=== PATIENT | male | born 1935 | race African-American/Black ===

== ENCOUNTER 2018-06-03 14:41 | Emergency (ER) | payer MEDICARE ==
--- NOTE | 2018-06-03 15:14 | Emergency Department Report ---
ED CPR HPI - General Chief Complaint: Cardiac Arrest/CPR Stated Complaint: CARDIAC ARREST Time Seen by Provider: 06/03/18 15:00 Source: EMS Mode of arrival: Stretcher Limitations: Other (Unresponsive) - History of Present Illness Initial Comments: According to EMS report, patient was found unresponsive at home and 911 was called. EMS arrived about 10-15 minutes after the 911 call. Patient was a witnessed arrest by his family. However, no CPR was started by the family prior to EMS arrival. When EMS arrived patient had no pulse and asystolic. EMS placed a combitube and started CPR. Patient remained pulseless and asystolic. By the time EMS arrived in the ED, patient had received ACLS/CPR from the claim analyst for approximately 20-25 minutes from the time EMS arrived on scene to the time patient arrived in the ED. Patient had also received 4 rounds of epinephrine IV from the claim analyst before arriving in the ED. On examination on arrival, patient still had no pulse and asystolic on the monitor. Pupils were fixed and dilated bilaterally. Bright red blood was coming out of the patients mouth when bagged. Patient has no sign of life. He was pronounced at 14:44 pm. I spoke with the patients daughter who followed the patient to the ED and communicated to her what transpired. She said she will notify the rest of her family to arrange for . I was accompanied by the charge nurse Ms. Ashley RN. Complaint: found unresponsive Place: home Bystander CPR Performed: No AED Applied by Bystander/Dynamic Balancer: No Initial Findings in the Field: unresponsive ROSC in the Field: No Associated Injuries: No Treatments Prior to Arrival: BMV, other airway device (Combitube), epinephrine mgs # (4) - Related Data Allergies Allergy/AdvReac Type Severity Reaction Status Date / Time No Known Allergies Allergy Unverified 07/25/14 09:57 ED Review of Systems ROS: Stated complaint: CARDIAC ARREST Other details as noted in HPI Comment: Unobtainable due to pts medical conditions (Unresponsive and pulseless.) ED Physical Exam - General Limitations: Other (Unresponsive and Pulseless.) General appearance: other (Lifeless and unresponsive.) - Head Head exam: Present: atraumatic - Eye Pupils: Present: mydriatic, other (Fixed and dilated) - ENT ENT exam: Present: other (Blood coming out of this mouth when bagged.) - Neck Neck exam: Present: normal inspection - Respiratory Respiratory exam: Present: other (Breath sound only when bagged.) - Cardiovascular Cardiovascular Exam: Present: other (Pulseless and asystolic) - GI/Abdominal GI/Abdominal exam: Present: soft, distended, diminished bowel sounds - Rectal Rectal exam: Present: deferred - Neurological Exam Neurological exam: Present: other (GCS = 3T) - Skin Skin exam: Present: petechiae, ecchymosis (Bilateral Upper extremities.) ED Course - Reevaluation(s) Reevaluation #1: 06/03/18 15:18 Pronounced at 14:44pm. ED Medical Decision Making - Medical Decision Making Cardiac Arrest of undetermined etiology. Critical care attestation.: If time is entered above; I have spent that time in minutes in the direct care of this critically ill patient, excluding procedure time. ED Disposition Clinical Impression: Cardiac arrest Disposition: DC-20 Is pt being admited?: No Does the pt Need Aspirin: No Condition: Critical Referrals: PRIMARY CARE, [Primary Care Provider] - 3-5 Days Time of Disposition: 14:45
== END 2018-06-03 18:18 ==
LOC: ED 14:41
DX: I46.9 Cardiac arrest, cause unspecified (principal)
CPT/HCPCS: 99285